=== PATIENT | male | born 1965 | race Caucasian/White ===

== ENCOUNTER 2022-03-18 08:00 | Outpatient (NON) | payer OTHER, SELFPAY | END 2022-03-18 08:01 | disposition home or self-care (01) | LOC: ANHLAB 03-20 12:29 | PROVIDERS: PCP Internal Medicine; Visit Provider Surgery | DX: N50.89 Other specified disorders of the male genital organs (principal) | CPT/HCPCS: 88305 ==

== ENCOUNTER 2022-03-18 08:50 | Day surgery (SDC) | payer OTHER, SELFPAY ==
[2022-03-06 10:22] VITALS: BMI 25.2
--- NOTE | 2022-03-18 07:49 | P.PNAN_ITS ---
Anes - Initial Pre Proc Eval Procedure: Operation Date: 03/18/22 10:30 Proposed Procedures p Excisional Biopsy Perineal Cyst - Stacie Maldonado MD Date/Time: 03/18/22 07:49 Surgeon: Stacie Maldonado MD Pre Op Diagnosis: Perineal Cyst Patient Data Age: 56 Gender: M Height: 1.75 m Weight: 77.5 kg Allergies Allergy/AdvReac Type Severity Reaction Status Date / Time No Known Allergies Allergy Verified 03/18/22 09:09 Home Medications Medication Instructions Recorded Confirmed Type amlodipine 2.5 mg tablet 2.5 mg PO DAILY 01/14/22 03/18/22 History gabapentin 300 mg capsule 300 mg PO TID 01/14/22 03/18/22 History hydrochlorothiazide 25 mg tablet 25 mg PO DAILY 01/14/22 03/18/22 History lisinopril 40 mg tablet 40 mg PO DAILY 01/14/22 03/18/22 History hydrocodone 5 mg-acetaminophen 325 1 tablet PO Q6H PRN pain #14 tabs 03/18/22 Rx mg tablet hydrocodone 5 mg-acetaminophen 325 1 tablet PO Q6H PRN pain #14 tabs 03/18/22 Rx mg tablet Patient hx anesthesia problems: none Family hx anesthesia problems: none Results Review: All pre-operative results and documents have been reviewed as part of the pre- operative evaluation. [facility] Past Medical History Medical History Depression Hypertension Family History Family History Other Heart disease Social History Social History Smoking status: Never smoker Tobacco type: cigarettes Alcohol intake: current Substance use: never Anes - Eval Final PreProcedure Day of Procedure 03/18/22 07:49 Patient weight: overweight Heart: regular rate and rhythm Lungs: clear to auscultation Airway: Mallampati scale class II Neurological: alert and oriented Last oral intake: >/= 8 hours ASA classification: II Emergent: no Anesthetic plan: proceed Anesthesia type and monitoring: general GIVS and standard monitoring Results Review: All pre-operative results and documents have been reviewed as part of the pre-operative evaluation. Informed Consent: The patient's anesthetic plan and its attendant risks and benefits were discussed with the patient/family/POA. Questions were solicited and answers provided to the satisfaction of the patient/family/POA.
[2022-03-18 09:26] VITALS: BP 155/88; PULSE 59; RESP 20; TEMP 37; O2SAT 99
[2022-03-18] MEDS: LACTATED RINGERS 1,000 ML 30 ML IV CONT (09:34)
--- NOTE | 2022-03-18 10:38 | PM.IMHP ---
H&P: HPI History of Present Illness Date/Time: 03/18/22 10:38 Chief Complaint: perineal mass Narrative: Simon is a 56 y/o male who presents to the office at the request of Dr. Ritchie for evaluation of a perirectal mass. Patient states he first noticed this about two years ago. Patient states he has been experiencing intermittent discomfort and pressure, especially when he rides his [place] bike. He states the area has drained in the past, but not in about 3 months. Review of Systems Review of Systems: All systems reviewed & are unremarkable except as noted in HPI and below PMFSH Past Medical History Medical History Depression Hypertension Family History Family History Other Heart disease Social History Social History Smoking status: Never smoker Tobacco type: cigarettes Alcohol intake: current Substance use: never Meds Home Medications and Allergies Home Medications Medication Instructions Recorded Confirmed Type amlodipine 2.5 mg tablet 2.5 mg PO DAILY 01/14/22 03/18/22 History gabapentin 300 mg capsule 300 mg PO TID 01/14/22 03/18/22 History hydrochlorothiazide 25 mg tablet 25 mg PO DAILY 01/14/22 03/18/22 History lisinopril 40 mg tablet 40 mg PO DAILY 01/14/22 03/18/22 History Allergies Allergy/AdvReac Type Severity Reaction Status Date / Time No Known Allergies Allergy Verified 03/18/22 09:09 Vital Signs Vital Signs - 24 hr 03/18/22 09:26 Temperature 37.0 C Pulse Rate 59 L Respiratory Rate 20 Blood Pressure 155/88 H Pulse Oximetry 99 Oxygen Delivery Room Air Exam Const: General: cooperative, comfortable and no acute distress Resp: Auscultation: clear to auscultation bilaterally Cardio: Rate: regular rate Rhythm: regular rhythm GI: Inspection: normal to inspection Other: perineal cyst marked Assessment and Plan Assessment and plan (1) Perineal cyst in male: Code(s): N50.89 - Other specified disorders of the male genital organs Status: Acute Assessment and Plan: will setup for exc bx
--- NOTE | 2022-03-18 10:41 | WPDHPUPDATE1 ---
History and Physical Update Update Date/Time: 03/18/22 10:41 History and Physical has been reviewed, including an updated exam of the patient. There are NO changes in the patient's condition. Risks, benefits, and alternatives have been discussed and questions answered. Patient agrees to proceed with procedure.
[2022-03-18] MEDS: ceFAZolin 2 GM/D5W 50 ML 2 GM/50 ML BAG IVPB (10:43)
[2022-03-18] MEDS: BUPIVACAINE/EPINEPHRINE 0.5% 30 ML VIAL INFILTRATE (11:14)
--- NOTE | 2022-03-18 11:14 | W.PM.PROC2 ---
Procedure Note - Detailed Date of Procedure 03/18/22 Pre-op Diagnosis Perineal Cyst Post-op Diagnosis Same Procedure Performed Excisional biopsy perineal cyst Surgeon Stacie Maldonado MD Anesthesia MAC and Local Indications 66-year-old male presenting with a perineal cyst. Patient reports slowly growing over the last couple years, with episodes of drainage intermittently Findings perineal cyst no active drainage , measuring approximately 2 x 2-1/2 cm Description of Procedure The patient was taken to the operating room placed in the modified lithotomy position. After adequate induction of MAC anesthesia, the patient was prepped and draped in the normal sterile fashion. A time-out was then done to verify the patient's identity as well as the procedure being performed. I began by localizing the area in the left perineum. I then made an elliptical incision encompassing the dermis over the mass. There was noted to be a punctate opening in the dermis however no drainage was noted. The the cystic mass was noted to be within the subcutaneous tissue. The cystic mass was removed in full. It will now be sent to pathology for further review and measured approximately 2 and half by 2 cm. There was no signs or symptoms of active infection. I then gained hemostasis with the Bovie cautery. The cavity was washed out with normal saline. Then closed the subcutaneous tissue with 3-0 Vicryl suture. The skin was closed with 4-0 Monocryl subcuticular suture. Dermabond was then placed on the wound. The patient tolerated the procedure well and was alert and awake in the operating room postoperatively. He will be transferred to the recovery room in stable condition. Implants None Estimated Blood Loss 5 Drains No Packing No Pathology Yes Complications No immediate complications Condition Stable Disposition PACU [facility] Billing Surgery - Charge Forward: Surgery Billing
[2022-03-18 11:19] VITALS: BP 117/69; PULSE 70; RESP 16; O2SAT 98
[2022-03-18 11:29] VITALS: BP 134/77; PULSE 52; RESP 18; O2SAT 100
[2022-03-18 12:05] VITALS: BP 135/85; PULSE 50; RESP 16; O2SAT 100
[2022-03-18] MEDS: oxyCODONE HCL (*CRX) 5 MG TAB IR PO (12:23)
--- NOTE | 2022-03-18 13:20 | SUR.PHASEII ---
1200- DR. GANT called to clarify exercise restrictions- pt is allowed to walk this pm if feeling up to it---may resume bicycle riding in 3-5 days depending on the healing of incision--new pain medication called into [facility] in [facility] for patient
--- NOTE | 2022-03-18 14:22 | WPDANESPN ---
Anes - Prog Note Post-Op Date/Time: 03/18/22 14:22 Cardiovascular status: normal Respiratory status: normal Airway patency: baseline Mental status: baseline Post-Op hydration status: normal Vital Signs: Last Vital Signs Temp 37.0 C 03/18/22 09:26 Pulse 50 L 03/18/22 12:05 Resp 16 03/18/22 12:05 BP 135/85 03/18/22 12:05 Pulse Ox 100 03/18/22 12:05 O2 Del Method Room Air 03/18/22 12:05 Pain Score (VAS): 1 Post-procedural complaints: none Patient Feedback: Patient satisfied with anesthetic care. Other Findings: Patient vital signs back to baseline. Patient denies nausea and vomiting. Patient's pain under control. Patient OK for discharge.
== END 2022-03-18 12:38 | disposition home or self-care (01) ==
PROVIDERS: PCP Internal Medicine; Visit Provider Surgery
PROC: (CPT 46040; principal; 2022-03-18 10:30)
DX: L98.8 Other specified disorders of the skin and subcutaneous tissue (principal)
CPT/HCPCS: 11423; 12041